=== PATIENT | female | born 1945 | race Caucasian/White ===

== ENCOUNTER → 2017-11-23 | Outpatient (CLI) | payer MEDICARE ==
[~2017-11-23] MED LIST: NORVASC5 MG PO
--- NOTE | 2017-11-24 08:57 | Diagnostic Imaging Report ---
#[id number] - MGDXLT #UNILATERAL LEFT DIGITAL DIAGNOSTIC MAMMOGRAM WITH CAD: 11/23/2017 Comparison is made to exams dated: 12/09/2016 mammogram, 11/06/2015 mammogram and 11/02/2014 mammogram - [facility]. Current study contains 3 films. The tissue of the left breast is predominantly fatty. Current study was also evaluated with a Computer Aided Detection (CAD) system. There is a benign calcification in the left breast. There is a mole marker on the left breast. No significant masses, calcifications, or other findings are seen in the breast. There has been no significant interval change. IMPRESSION: BENIGN There is no mammographic evidence of malignancy. A 1 year screening mammogram is recommended. The patient will be notified by letter of the results. Ángel valiente/tiffanie:11/23/2017 13:45:07 Paper Winder: Annette ECHEVERRIA(Tammi)(M), [facility] letter sent: Compared to Prior B9 Mammogram BI-RADS: 2 Benign
== END ==
LOC: MAMMO 12:08
PROVIDERS: ATTEND Radiology Radiation Oncology
DX: C50.412 Malignant neoplasm of upper-outer quadrant of left female breast (principal)

== ENCOUNTER → 2018-11-15 | Outpatient (CLI) | payer MEDICARE ==
--- NOTE | 2018-11-17 11:11 | Diagnostic Imaging Report ---
#[id number] - MGSCRLT #UNILATERAL LEFT DIGITAL SCREENING MAMMOGRAM WITH CAD: 11/15/2018 CLINICAL: Routine screening. Comparison is made to exams dated: 11/23/2017 mammogram and 12/09/2016 mammogram - [facility]. Current study contains 3 films. The tissue of the left breast is predominantly fatty. Current study was also evaluated with a Computer Aided Detection (CAD) system. No significant masses, calcifications, or other findings are seen in the breast. IMPRESSION: NEGATIVE There is no mammographic evidence of malignancy. A 1 year screening mammogram is recommended. The patient will be notified by letter of the results. DEMARIO RAINES M.D. ct/penrad:11/15/2018 15:46:43 Charter Representative: Annette THOMAS)(M), [facility] letter sent: Normal Exam Mammogram BI-RADS: 1 Negative
== END ==
LOC: MAMMO 08:22
PROVIDERS: ATTEND Radiology Radiation Oncology
DX: Z12.31 Encounter for screening mammogram for malignant neoplasm of breast (principal)

== ENCOUNTER → 2019-11-10 | Outpatient (CLI) | payer MEDICARE ==
--- NOTE | 2019-11-15 13:41 | Diagnostic Imaging Report ---
#[id number] - MGSCRLT #UNILATERAL LEFT DIGITAL SCREENING MAMMOGRAM WITH CAD: 11/10/2019 CLINICAL: Routine screening. Comparison is made to exams dated: 11/15/2018 mammogram and 11/23/2017 mammogram - [facility]. The tissue of the left breast is predominantly fatty. Current study was also evaluated with a Computer Aided Detection (CAD) system. There are benign lymph nodes in the left breast. There is a mole marker on the left breast. No significant masses, calcifications, or other findings are seen in the breast. There has been no significant interval change. IMPRESSION: BENIGN There is no mammographic evidence of malignancy. A 1 year screening mammogram is recommended. The patient will be notified by letter of the results. CINDY kang/tiffanie:11/15/2019 11:09:04 Video Game Tester: Annette ECHEVERRIA(Tammi)(M), [facility] letter sent: Normal Exam Mammogram BI-RADS: 2 Benign
== END ==
LOC: MAMMO 08:30
PROVIDERS: ATTEND Radiology Radiation Oncology
DX: Z12.31 Encounter for screening mammogram for malignant neoplasm of breast (principal)

== ENCOUNTER → 2020-11-14 | Outpatient (CLI) | payer MEDICARE | LOC: MAMMO 09:02 | PROVIDERS: ATTEND Radiology Radiation Oncology | DX: Z12.31 Encounter for screening mammogram for malignant neoplasm of breast (principal) ==

== ENCOUNTER 2023-11-01 12:25 | Inpatient (IN) | payer MEDICARE ==
[~2023-11-01] VITALS: Ht 157.5 cm; Wt 54.4 kg
[2023-11-01 13:00] VITALS: TEMP 98.3
[2023-11-01 13:21] LABS: EOSINOPHILS % 0.4 % (0.0-6.0); LYMPHOCYTES # (AUTO) 0.4 (1.0-3.2); MEAN CORPUSCULAR HGB CONC 29.9 g/dL (31-35); MEAN CORPUSCULAR VOLUME 80.5 fL (81-99); MONOCYTES # (AUTO) 0.1 (0.2-0.8); MONOCYTES % 4.7 % (4.4-11.3); NEUTROPHILS # (AUTO) 2.3 (2.1-6.9); NEUTROPHILS % 81.5 % (38.7-80.0); RED BLOOD COUNT 2.62 x10e6/uL (3.6-5.1); RED CELL DISTRIBUTION WIDTH 15.8 % (11.7-14.4); WHITE BLOOD COUNT 2.77 x10e3/uL (4.8-10.8)
[2023-11-01 13:27] LABS: INR 1.13; PROTHROMBIN TIME 15.3 seconds (11.9-14.5)
[2023-11-01 13:28] LABS: PARTIAL THROMBOPLASTIN TIME 38.8 seconds (23.8-35.5)
[2023-11-01] MEDS ORDERED: SODIUM CHLORIDE 0.9% 1000ML 1,000 ML IV SCH (13:30)
[2023-11-01 13:31] LABS: HEMATOCRIT 21.1 % (34.2-44.1); HEMOGLOBIN 6.3 g/dL (12.0-16.0); PLATELET COUNT 34 x10e3/uL (140-360)
[2023-11-01 13:34] LABS: ALBUMIN 1.8 g/dL (3.5-5.0); ALBUMIN/GLOBULIN RATIO 0.7 (0.8-2.0); ANION GAP 14.2 mmol/L (8-16); BILIRUBIN,TOTAL 0.7 mg/dL (0.2-1.2); CALCIUM 8.7 mg/dL (8.4-10.2); CREATININE, SERUM 1.49 mg/dL (0.57-1.11); TOTAL PROTEIN 4.5 g/dL (6.5-8.1)
[2023-11-01 13:40] LABS: TROPONIN I 0.018 ng/mL (0-0.300)
[2023-11-01 14:03] LABS: POTASSIUM 3.2 mmol/L (3.5-5.1)
[2023-11-01 17:15] VITALS: PULSE 65; RESP 22
[2023-11-01 19:49] VITALS: BP 112/60; PULSE 69; RESP 18; TEMP 98.1; O2SAT 98
[2023-11-01 21:13] VITALS: BP 112/60; PULSE 69; RESP 18; TEMP 98.1; O2SAT 98
[2023-11-01] MEDS ORDERED: FOLIC ACID0.4 MG PO (22:07)
[2023-11-01] MEDS ORDERED: ATORVASTATIN CA20 MG PO (22:07)
[2023-11-01] MEDS ORDERED: ASPIRIN EC81 MG PO (22:08)
[2023-11-01] MEDS ORDERED: [UNRECOGNIZED DRUG - OTHER] (22:09)
[2023-11-01] MEDS ORDERED: ATACAND16 MG PO (22:09)
[2023-11-01] MEDS ORDERED: one a day PO (22:11)
[2023-11-01 22:13] VITALS: BP 112/60; PULSE 69; RESP 18; TEMP 98.1; O2SAT 98
[2023-11-01 23:33] VITALS: BP 100/59; PULSE 77; RESP 18; TEMP 98.1; O2SAT 98
[2023-11-02] VITALS (9 sets, daily range): BP systolic 90–143; BP diastolic 56–82; PULSE 61–94; RESP 16–20; TEMP 98.3–99.6; O2SAT 94–100
[2023-11-02 01:00] LABS: TROPONIN I 0.013 ng/mL (0-0.300)
[2023-11-02 03:19] LABS: BILIRUBIN,URINE NEGATIVE (NEGATIVE); CLARITY,URINE CLOUDY (CLEAR); COLOR,URINE YELLOW (YELLOW); GLUCOSE, URINE NEGATIVE (NEGATIVE); KETONES,URINE NEGATIVE (NEGATIVE); LEUKOCYTE ESTERASE ,URINE TRACE (NEGATIVE); NITRITE,URINE NEGATIVE (NEGATIVE); PH,URINE 5.5 (5 - 7); PROTEIN,URINE DIPSTICK NEGATIVE (NEGATIVE); URINE UROBILINOGEN 0.2 mg/dL (0.2 - 1)
[2023-11-02 03:25] LABS: AMORPHOUS SEDIMENT,URINE MODERATE (FEW); BACTERIA,URINE MANY /HPF; EPITHELIAL CELLS,URINE MODERATE /LPF; RENAL EPITHELIAL CELLS,URINE FEW; TRANSITIONAL EPI CELLS,URINE FEW; WBC,URINE (MAN) 21-50 /HPF (0-5)
[2023-11-02] MEDS: SODIUM CHLORIDE 0.9% 250ML 250 ML IV ONE ×2 (04:43→04:44)
[2023-11-02 07:33] LABS: EOSINOPHILS % 0.4 % (0.0-6.0); HEMATOCRIT 25.4 % (34.2-44.1); HEMOGLOBIN 8.4 g/dL (12.0-16.0); LYMPHOCYTES # (AUTO) 0.3 (1.0-3.2); LYMPHOCYTES % 13.4 % (18.0-39.1); MEAN CORPUSCULAR HGB CONC 33.1 g/dL (31-35); MEAN CORPUSCULAR VOLUME 78.6 fL (81-99); MONOCYTES # (AUTO) 0.2 (0.2-0.8); MONOCYTES % 8.1 % (4.4-11.3); NEUTROPHILS # (AUTO) 1.9 (2.1-6.9); NEUTROPHILS % 76.9 % (38.7-80.0); RED BLOOD COUNT 3.23 x10e6/uL (3.6-5.1); RED CELL DISTRIBUTION WIDTH 15.7 % (11.7-14.4); WHITE BLOOD COUNT 2.47 x10e3/uL (4.8-10.8)
[2023-11-02 07:43] LABS: PLATELET COUNT 36 x10e3/uL (140-360)
[2023-11-02 08:10] LABS: ALBUMIN 1.6 g/dL (3.5-5.0); ALBUMIN/GLOBULIN RATIO 0.7 (0.8-2.0); ANION GAP 12.1 mmol/L (8-16); BILIRUBIN,TOTAL 1.5 mg/dL (0.2-1.2); CALCIUM 8.1 mg/dL (8.4-10.2); CREATININE, SERUM 1.26 mg/dL (0.57-1.11)
[2023-11-02 08:11] LABS: POTASSIUM 3.1 mmol/L (3.5-5.1)
[2023-11-02 08:13] LABS: CREATINE KINASE < 7 IU/L (29-168)
[2023-11-02 08:14] LABS: TROPONIN I 0.024 ng/mL (0-0.300)
[2023-11-02] MEDS: SODIUM CHLORIDE 0.9% 250ML 250 ML ONE (08:38)
[2023-11-02] MEDS ORDERED: MELATONIN 3 MG TAB PO PRN (14:15)
[2023-11-02] MEDS ORDERED: ALBUTEROL/IPRATROPIUM 3 ML NEB NEB PRN (14:15)
[2023-11-02] MEDS ORDERED: SIMETHICONE 80 MG CHEW PO PRN (14:15)
[2023-11-02] MEDS ORDERED: DOCUSATE SODIUM 100 MG CAP PO PRN (14:15)
[2023-11-02] MEDS ORDERED: METOPROLOL TARTRATE INJ 1 MG/ML VIAL IV PRN (14:15)
[2023-11-02] MEDS ORDERED: ONDANSETRON HCL INJ 2MG/ML 2ML 2 MG/ML VIAL IV PRN (14:15)
[2023-11-02] MEDS: SODIUM CHLORIDE 0.45% 1,000 ML IV SCH (15:12)
[2023-11-02 16:05] LABS: % IRON SATURATION 18 % (15-50); IRON 24 ug/dL (50-170); TOTAL IRON BINDING CAPACITY 133 ug/dL (261-478); TRANSFERRIN 95 mg/dL (180-382)
[2023-11-02 16:10] LABS: CREATINE KINASE < 7 IU/L (29-168)
[2023-11-02 16:13] LABS: TROPONIN I 0.015 ng/mL (0-0.300)
[2023-11-02] MEDS: SODIUM FERRIC GLUCONATE COMPLX 125 MG in SODIUM CHLORIDE 0.9% 100 ML IV ONE (17:50)
[2023-11-02] MEDS: ATORVASTATIN 40 MG TAB PO SCH (20:07)
[2023-11-03 03:41] VITALS: BP 117/67; PULSE 93; RESP 18; TEMP 98.8; O2SAT 94
[2023-11-03 05:28] LABS: BASOPHILS % 0.4 % (0.0-1.0); EOSINOPHILS % 0.4 % (0.0-6.0); HEMATOCRIT 25.6 % (34.2-44.1); HEMOGLOBIN 8.1 g/dL (12.0-16.0); LYMPHOCYTES # (AUTO) 0.3 (1.0-3.2); LYMPHOCYTES % 12.7 % (18.0-39.1); MEAN CORPUSCULAR HEMOGLOBIN 25.3 pg (28-32); MEAN CORPUSCULAR HGB CONC 31.6 g/dL (31-35); MONOCYTES # (AUTO) 0.1 (0.2-0.8); MONOCYTES % 5.6 % (4.4-11.3); NEUTROPHILS % 79.7 % (38.7-80.0); RED CELL DISTRIBUTION WIDTH 15.9 % (11.7-14.4); WHITE BLOOD COUNT 2.52 x10e3/uL (4.8-10.8)
[2023-11-03 05:45] LABS: PLATELET COUNT 33 x10e3/uL (140-360)
[2023-11-03 08:00] VITALS: BP 133/73; PULSE 90; RESP 16; TEMP 98.8; O2SAT 98
[2023-11-03] MEDS: FOLIC ACID 1 MG TAB PO SCH (08:42)
[2023-11-03] MEDS: AMLODIPINE BESYLATE 5 MG TAB PO SCH (08:43)
[2023-11-03] MEDS ORDERED: FERROUS SULFAT325 M1 PO (09:18)
[2023-11-03 11:15] VITALS: PULSE 90; RESP 18; O2SAT 98
[2023-11-03 12:56] LABS: ANION GAP 13.2 mmol/L (8-16); CALCIUM 7.9 mg/dL (8.4-10.2); CREATININE, SERUM 0.92 mg/dL (0.57-1.11); POTASSIUM 3.2 mmol/L (3.5-5.1)
[2023-11-03] MEDS ORDERED: ONDANSETRON HCL 4 MG ORAL DISINTEGRATING TAB PO PRN (13:45)
[2023-11-03 15:50] LABS: HEPATITIS B SURFACE AG (P) Nonreactive; HEPATITIS C ANTIBODY Nonreactive
== END 2023-11-03 13:47 | disposition home or self-care (01) | DRG 809 ==
LOC: ER 13:06 → ERHOLD 16:47 → MED/SURG 18:03
PROVIDERS: ADMIT Internal Medicine; ATTEND Internal Medicine
PROC: 30233N1 Transfusion of Nonautologous Red Blood Cells into Peripheral Vein, Percutaneous Approach (ICD-10-PCS; principal; 2023-11-01)
DX: D61.818 Other pancytopenia (principal); E87.1 Hypo-osmolality and hyponatremia; N17.9 Acute kidney failure, unspecified; N39.0 Urinary tract infection, site not specified; R62.7 Adult failure to thrive; R06.02 Shortness of breath; R60.0 Localized edema; Z11.52 Encounter for screening for COVID-19; I10 Essential (primary) hypertension; E78.5 Hyperlipidemia, unspecified; Z90.11 Acquired absence of right breast and nipple; Z92.21 Personal history of antineoplastic chemotherapy; Z92.3 Personal history of irradiation; Z85.3 Personal history of malignant neoplasm of breast
CPT/HCPCS: 36415; 70450; 71045; 76700; 80048; 80053; 81001; 82140; 82550; 82607; 82728; 82746; 82948; 83010; 83540; 83615; 83735; 83880; 84466; 84484; 85025; 85045; 85610; 85730; 86850; 86900; 86920; 93005; 93306; 94799; 99284; J0696; J2916; J7050; P9016; U0002